=== PATIENT | female | born 1980 | race Caucasian/White ===

== ENCOUNTER 2018-01-13 05:58 | Day surgery (SDC) | payer MEDICAID ==
[2018-01-13] MEDS ORDERED: CEFAZOLIN 1 GM INJ ×2 (07:00→07:36)
[2018-01-13 07:15] LABS: ADD MAN DIFF? NO
[2018-01-13 07:22] LABS: BASOPHILS % 0.5 % (0.0-2.0); EOSINOPHILS # 0.2 10^3/ul (0.0-0.5); EOSINOPHILS % 2.6 % (0.0-7.0); HEMATOCRIT 39.6 % (37.0-47.0); HEMOGLOBIN 13.2 g/dl (12.0-16.0); LYMPHOCYTES % 39.5 % (15.0-51.0); MEAN CORPUSCULAR HEMOGLOBIN 29.3 pg (29.0-33.0); MEAN CORPUSCULAR HGB CONC 33.3 g/dl (32.0-37.0); MEAN PLATELET VOLUME 9.9 fl (7.4-10.4); MONOCYTE # 0.6 10^3/ul (0.3-0.9); MONOCYTES % 8.1 % (0.0-11.0); NEUTROPHIL # 3.7 10^3/ul (1.6-7.5); NEUTROPHILS % 49.2 % (39.0-77.0); PLATELET COUNT 341 10^3/UL (140-415)
[2018-01-13 07:22] LABS: WHITE BLOOD COUNT 7.6 10^3/ul (4.8-10.8)
[2018-01-13] MEDS ORDERED: MIDAZOLAM 1 MG/ML 2 ML INJ (07:32)
[2018-01-13] MEDS ORDERED: METOCLOPRAMIDE 10 MG INJ (07:32)
[2018-01-13] MEDS ORDERED: FENTAnyl 50 MCG/ML VIAL (07:36)
[2018-01-13] MEDS ORDERED: KETOROLAC 30 MG INJ (07:38)
[2018-01-13] MEDS ORDERED: ONDANSETRON 4 MG INJ (07:38)
[2018-01-13] MEDS ORDERED: EPHEDrine SULFATE 50 MG/5 ML SYG (07:43)
[2018-01-13] MEDS ORDERED: DIPHENHYDRAMINE 50 MG INJ IV (08:00)
[2018-01-13] MEDS ORDERED: MEPERIDINE 25 MG INJ IV (08:00)
[2018-01-13] MEDS ORDERED: OXYCODONE/ACETAMINOPHEN (5/325) TAB PO ×2 (08:00)
[2018-01-13] MEDS ORDERED: ONDANSETRON 4 MG INJ IV (08:00)
[2018-01-13] MEDS ORDERED: morphine (1 MG/ML) 10ML SYRINGE IV ×3 (08:00)
[2018-01-13] MEDS ORDERED: EPHEDrine SULFATE 50 MG/5 ML SYG IV (09:30)
== END 2018-01-13 11:00 | disposition home or self-care (01) ==
LOC: SDS 05:58
DX: Z30.2 Encounter for sterilization (principal)
CPT/HCPCS: 58565; 84703; 85025; 86850; 86900; 86901